=== PATIENT | female | born 1970 | race Caucasian/White ===

== ENCOUNTER 2018-10-22 20:24 | Emergency (ER) ==
[2018-10-22 20:36] VITALS: BP 160/94; TEMP 98.2; BMI 50.5
[2018-10-22 20:54] LABS: URINE PREGNANCY TEST NEGATIVE (NEGATIVE)
--- NOTE | 2018-10-22 21:57 | CT ---
EXAM: CT scan of the lumbar spine without contrast CLINICAL HISTORY: Fall TECHNIQUE: Helical imaging of the lumbar spine was performed without contrast. Sagittal and coronal reconstructions and axial images were provided for interpretation. FINDINGS: There is no evidence of acute compression fracture. The paraspinal soft tissues are dora l. The sacrum appears intact. The spinous processes and transverse processes appear intact. IMPRESSION: No evidence of acute fracture seen within the lumbar spine.
--- NOTE | 2018-10-22 22:00 | CT ---
Exam: CT pelvis without contrast History: Fall with pelvis pain Technique: [address] bony pelvis with multiplanar reformations FINDINGS: Pelvic ring is intact. The sacrum and coccyx are intact. Mild bilateral sacroiliac osteo arthritic change. The femoral heads and acetabula are intact without significant degenerative change . Left adnexal cyst measuring 5.7 x 3.0 cm. No acute visceral abnormalities are seen otherwise. Impression: 1. No acute findings of the bony pelvis or hips.
--- NOTE | 2018-10-22 22:03 | DI ---
Exam: Three views of the right shoulder. Comparison: None available. Reason for exam: Fall with shoulder pain. FINDINGS: The clavicle appears intact. Chronic-appearing cortical irregularity in the right lateral humeral head. No evidence of dislocation. The glenohumeral joint is well maintained. Impression: 1. Chronic-appearing cortical irregularity in the lateral humeral head. Cannot rule out Hill-Sachs lesion. If clinical concern exists, further evaluation could be performed. 2. No evidence of dislocation.
--- NOTE | 2018-10-22 22:15 | ED.PDOC ---
General ED Provider: Dr. BENJAMIN SIMMONS-ER Chief Complaint: Multiple Trauma Stated Complaint: i fell on steps---hurt my shoulder and my back Time Seen by Physician: 20:30 Mode of Arrival: Walk-In Information Source: Patient Exam Limitations: No limitations Primary Care Provider: GILBERTO BUNN Nursing and Triage Documentation Reviewed and Agree: Yes Does patient meet sepsis criteria?: No System Inflammatory Response Syndrome: Not Applicable Sepsis Protocol: For patient's 13 years and over: Temp is 96.8 and below OR 101 and greater Pulse >90 BPM Resp >20/minute Acutely Altered Mental Status Are patient's symptoms suggestive of a new infection, such as: -Pneumonia -Skin, Soft Tissue -Endocarditis -UTI -Bone, Joint Infection -Implantable Device -Acute Abdominal Infection -Wound Infection -Meningitis -Blood Stream Catheter Infection -Unknown Musculoskeletal Complaint Exam - Shoulder Pain Complaint/Exam Mechanism of Injury: Reports: Trauma Onset/Duration: 30-min Timing: Constant Initial Severity: Mild Current Severity: Mild Location: Reports: Discrete Character: Reports: Dull, Aching Aggravating: Reports: Movement, Lifting, Flexion, Extension Associated Signs and Symptoms: Denies: Swelling, Redness, Bruising, Fever, Weakness, Numbness, Tingling Tenderness: Present: Proximal humerus, Rotator cuff muscles Limited Range of Motion: Present: Abduction, Adduction Differential Diagnoses: AC Seperation, Arthritis, Contusion Review of Systems - Review Of Systems Constitutional: Reports: No symptoms Eyes: Reports: No symptoms Ears, Nose, Mouth, Throat: Reports: No symptoms Respiratory: Reports: No symptoms Cardiac: Reports: No symptoms GI: Reports: No symptoms : Reports: No symptoms, Urgency Musculoskeletal: Reports: Muscle pain Skin: Reports: No symptoms Neurological: Reports: No symptoms Endocrine: Reports: No symptoms Hematologic/Lymphatic: Reports: No symptoms All Other Systems: Reviewed and Negative Past Medical History - Past Medical History Previously Healthy: Yes Endocrine: Reports: Unknown Cardiovascular: Reports: Unknown Respiratory: Reports: Unknown Hematological: Reports: Unknown Gastrointestinal: Reports: Unknown Genitourinary: Reports: Unknown Neuro/Psych: Reports: Unknown Musculoskeletal: Reports: Unknown Cancer: Reports: Unknown Last Menstrual Period: last week - Surgical History General Surgical History: Reports: Unknown - Family History Family History: Reports: None, Unknown - Social History Smoking Status: Never smoker Hx Substance Use: No Alcohol Screening: None Physical Exam - Physical Exam Appearance: Well-appearing, No pain distress, Well-nourished Pain Distress: Mild Eyes: PRISCILA, EOMI, Conjunctiva clear ENT: Ears normal, Nose normal, Oropharynx normal Neck: Supple Respiratory: Airway patent, Breath sounds clear, Breath sounds equal, Respirations nonlabored Cardiovascular: RRR, Pulses normal, No rub, No murmur GI/: Soft, Nontender, No masses, Bowel sounds normal, No Organomegaly Musculoskeletal: Limited ROM Skin: Warm, Dry, Normal color Neurological: Sensation intact, Motor intact, Reflexes intact, Cranial nerves intact, Alert, Oriented Psychiatric: Affect appropriate Interpretation - Radiology Interpretation Radiology Interpretation By: Radiologist Radiology Results: Negative Exam Interpreted: CT Scan Critical Care Note - Critical Care Note Total Time (mins): 0 Course - Course Orders, Labs, Meds: Lab Review 10/22/18 20:50 Urine Test Negative Orders Category Date Time Status URINE Stat LAB 10/22/18 20:[address] LUMBAR SPINE W/O CONTRAST Stat RADS 10/22/18 20:[address] PELVIS W/O CONTRAST Stat RADS 10/22/18 20:43 Completed SHOULDER, RIGHT MIN 2V Stat RADS 10/22/18 20:43 Completed Vital Signs: Temp Pulse Resp BP Pulse Ox 10/22/18 20:26 98.2 F 107 H 20 160/94 H 99 Departure - Departure Time of Disposition: 22:14 Disposition: PLACED OBSERVATION Discharge Problem: Shoulder pain, right Qualifiers: Chronicity: acute Qualified Code(s): M25.511 - Pain in right shoulder Low back pain Qualifiers: Chronicity: acute Back pain laterality: midline Sciatica presence: without sciatica Qualified Code(s): M54.5 - Low back pain Instructions: Acute Low Back Pain (ED) Condition: Good Pt referred to PMD for follow-up: Yes IPMP verified?: No Additional Instructions: use motrin or tylenol for pain---talk to your pcp about ovarian cyst Allergies/Adverse Reactions: Allergies codeine Adverse Reaction (Verified 10/22/18 20:36) meperidine [From Demerol] Adverse Reaction (Verified 10/22/18 20:36) Disposition Discussed With: Patient, Family
== END 2018-10-22 21:20 | disposition home or self-care (01) ==
LOC: ED 20:24
DX: M25.511 Pain in right shoulder (principal); M54.5 Low back pain; W10.9XXA Fall (on) (from) unspecified stairs and steps, initial encounter
CPT/HCPCS: 81025; 99282